=== PATIENT | female | born 1985 | race Hispanic/Latino ===

== ENCOUNTER 2023-04-02 00:04 | Inpatient (IN) | payer OTHER ==
[~2023-04-02] VITALS: Ht 168.9 cm; Wt 76.2 kg
--- OUTSIDE RECORDS SUMMARY | ~2023-04-02 | XMS | Continuity of Care Document ---
Demographics + + + | Address | [address] | | | [place] [address] | + + + | Preferred Language | Unknown | + + + | Marital Status | | + + + | Episcopalian Affiliation | Unknown | + + + | Race | Unknown | + + + | Ethnic Group | Unknown | + + + Author + + + | Author | [facility] | + + + | Organization | [facility] | + + + | Address | [address] | | | [place] [address] | + + + | Phone | | + + + Care Team Providers + + + + | Care [employer] Technician Name | Role | Phone | + + + + Unavailable | Unavailable | + + + + Allergies and Intolerances + + + + + + | date | description | facility | reaction | severity | + + + + + + | (no date) | No Known | [facility] | (no reaction) | (no severity) | | | Allergies | | | | + + + + + + | (no date) | No Known | [facility] | (no reaction) | (no severity) | | | Allergies | | | | + + + + + + Encounters No information. Functional Status No information. Immunizations No information. Medications No information. Problems + + + + | date | description | facility | + + + + | 2022-11-07 14:58 | [facility] | [facility] | | | NORMAL FIRST PREG, SECOND | | | | TRIMESTER | | + + + + | 2022-11-07 14:58 | 20 WEEKS GESTATION OF | [facility] | | | | | + + + + | 2022-12-28 16:11 | COMPLETE PLACENTA PREVIA | [facility] | | | NOS OR WITHOUT | | + + + + | 2022-12-28 16:11 | COMPLETE PLACENTA PREVIA | [facility] | | | NOS OR WITHOUT HEMOR, | | | | SECOND TRI | | + + + + | 2022-12-28 16:11 | 27 WEEKS GESTATION OF | [facility] | | | | | + + + + | 2023-01-22 19:10 | UNSPECIFIED ACUTE | [facility] | | | APPENDICITIS | | + + + + | 2023-01-22 19:10 | LOWER ABDOMINAL PAIN, | [facility] | | | UNSPECIFIED | | + + + + | 2023-03-27 10:47 | NAUSEA WITH VOMITING, | [facility] | | | UNSPECIFIED | | + + + + | 2023-03-27 10:47 | 40 WEEKS GESTATION OF | [facility] | | | | | + + + + Procedures No information. Results/Labs No information. Social History No information. Vital Signs No information."
[~2023-04-02 00:04] MED LIST: MOTRIN IB200 MG PO; PERCOCET 7.5-31 EACH PO; PROMETHAZINE HC25 M1 PO; TYLENOL EXTRA500 MG PO
[2023-04-02 00:54] LABS: HEMATOCRIT 31.5 % (35.0-50.0); HEMOGLOBIN 10.7 g/dL (12.0-18.0); MCH 29.9 (27-36); MCHC 33.9 g/dl (30-36); MCV 88.1 fl (81-99); RBC 3.58 M/ul (4.3-5.7); RDW 14.3 (10.5-15.0)
[2023-04-02 00:58] LABS: AMPHETAMINES, UR NEGATIVE (NEGATIVE); BARBITURATES, UR NEGATIVE (NEGATIVE); BENZODIAZEPINES, UR NEGATIVE (NEGATIVE); BUPRENORPHINE,UR NEGATIVE (NEGATIVE); COCAINE, UR NEGATIVE (NEGATIVE); MARIJUANA (THC), UR NEGATIVE (NEGATIVE); MDMA, UR NEGATIVE (NEGATIVE); METHADONE, UR NEGATIVE (NEGATIVE); METHAMPHETAMINE, UR NEGATIVE (NEGATIVE); OPIATES, UR NEGATIVE (NEGATIVE); OXYCODONE, UR NEGATIVE (NEGATIVE); PHENCYCLIDINE, UR NEGATIVE (NEGATIVE); TRICYCLIC ANTIDEPRESSANT, UR NEGATIVE (NEGATIVE)
[2023-04-02 01:34] LABS: ABO A; ANTIBODY SCREEN NEGATIVE; RH POSITIVE
[2023-04-02 01:36] VITALS: BP 119/74
[2023-04-03 06:12] LABS: HEMATOCRIT 24.5 % (35.0-50.0); MCHC 32.6 g/dl (30-36); MCV 89.2 fl (81-99); RBC 2.75 M/ul (4.3-5.7); RDW 14.2 (10.5-15.0)
--- NOTE | 2023-04-03 10:02 | NUR ---
MOM IN BED WORKIGN ON PAPERWORK. DAD AND GRANDMOTHER ON COUCH. GRANDFATHER STANDING HOLDING BABY. ALL EXHIBITED LOVING ATTITUDE TOWARDS BABY. I EXERCISED MINISTRY OF PRESENCE TALKED OF OTHER GRANDCHILDREN. FAMILY CONSENTED TO PRAYER. PRAYED FOR GOOD BEGINNINGS AND ONGOING BLESSING.
--- NOTE | 2023-04-03 11:39 | PR ---
[facility] [address] [place], [place] [address] Signed PP Progress Notes Datetime Report Generated by CPN: 04/03/2023 11:39 SUBJECTIVE: [id number] Pain: Within Normal Limits Vital Signs: [id number] Vital Signs: Reviewed; Within Normal Limits Cardiovascular: Not Done Respiratory: Not Done Abdomen/Uterus: Abnormal Lochia: Normal Vulva/Perineum: Normal Breasts: Not Done CVA Tenderness: Not Done Extremities: Normal Incision: Not Applicable Progress: Abnormal Exam Comments: Fundus firm, NT @ U-2. H/H 8/24.5, WBC 13, plat 204k IMPRESSION/PLAN/PROCEDURES: [id number] Impression: Normal Progression Other Impression: anemia Other Plans: iron infusion Other Procedures: iron infusion Progress Notes: Feeling much stronger today and not light headed when up walking now. I think she would benefit from iron infusion given her anemia and she is willing to proceed. Signing Physician: Belle Briceno MD Copies: ~ *Electronically Signed* 04/03/23 1139 BELLE BRICENO MD PATIENT NAME: KIYA SCHUSTER PROGRESS NOTE DATE OF : 87 PHYSICIAN: BELLE BRICENO MD RPT #: [id number] REPORT IS CONFIDENTIAL AND NOT TO BE RELEASED WITHOUT AUTHORIZATION
--- NOTE | 2023-04-04 08:06 | PR ---
[facility] [address] [place], [place] [address] Signed PP Progress Notes Datetime Report Generated by CPN: 04/04/2023 08:06 SUBJECTIVE: [id number] Pain: Within Normal Limits Vital Signs: [id number] Vital Signs: Reviewed; Within Normal Limits Cardiovascular: Not Done Respiratory: Not Done Abdomen/Uterus: Abnormal Lochia: Normal Vulva/Perineum: Not Done Breasts: Not Done CVA Tenderness: Not Done Extremities: Normal Incision: Not Applicable Progress: Abnormal Exam Comments: Fundus firm, NT @ U-2. IMPRESSION/PLAN/PROCEDURES: [id number] Impression: Normal Progression Other Impression: anemia Plan: Discharge Other Plans: iron infusion Procedures: None Other Procedures: iron infusion Progress Notes: Doing well. She is tolerating ambulation well. She is having some issues with breast feeding, however. Signing Physician: Belle Briceno MD Copies: ~ *Electronically Signed* 04/04/23805 BELLE BRICENO MD PATIENT NAME: GUS YANGKIYA PROGRESS NOTE DATE OF : 87 PHYSICIAN: BELLE BRICENO MD RPT #: [id number] REPORT IS CONFIDENTIAL AND NOT TO BE RELEASED WITHOUT AUTHORIZATION
== END 2023-04-04 10:10 | disposition home or self-care (01) | DRG 807 ==
LOC: FBC 00:04
PROVIDERS: ADMIT Obstetrics & Gynecology; ATTEND Obstetrics & Gynecology
PROC: 10E0XZZ Delivery of Products of Conception, External Approach (ICD-10-PCS; principal; 2023-04-02)
PROC: 0KQM0ZZ Repair Perineum Muscle, Open Approach (ICD-10-PCS; 2023-04-02)
PROC: 00HU33Z Insertion of Infusion Device into Spinal Canal, Percutaneous Approach (ICD-10-PCS; 2023-04-02)
PROC: 3E0R3BZ Introduction of Anesthetic Agent into Spinal Canal, Percutaneous Approach (ICD-10-PCS; 2023-04-02)
PROC: 10907ZC Drainage of Amniotic Fluid, Therapeutic from Products of Conception, Via Natural or Artificial Opening (ICD-10-PCS; 2023-04-02)
DX: O48.0 Post-term pregnancy (principal); Z37.0 Single live birth; O70.1 Second degree perineal laceration during delivery; O99.02 Anemia complicating childbirth; D64.9 Anemia, unspecified; O69.1XX0 Labor and delivery complicated by cord around neck, with compression, not applicable or unspecified; Z67.10 Type A blood, Rh positive; Z3A.40 40 weeks gestation of pregnancy; Z91.040 Latex allergy status; Z79.82 Long term (current) use of aspirin; Z79.899 Other long term (current) drug therapy; Z90.49 Acquired absence of other specified parts of digestive tract
CPT/HCPCS: 01960; 36415; 85027; 86850; 86900; 86901; A9270; J2210; J2590; J2795; J3010; J7121; Q0138